=== PATIENT | female | born 1990 | race African-American/Black ===

== ENCOUNTER 2016-12-05 19:45 | Outpatient (CLI) | payer MEDICAID ==
[2016-12-05 20:48] VITALS: BP 116/63
[2016-12-05] MEDS ORDERED: ZOFRAN IV ONE (21:00)
[2016-12-05] MEDS ORDERED: LACTATED RINGERS 1,000 ML IV SCH (21:00)
[2016-12-05] MEDS ORDERED: LACTATED RINGERS 1,000 ML ONE (22:04)
[2016-12-05] MEDS ORDERED: ZOFRAN ONE (22:04)
[2016-12-05] MEDS ORDERED: VISTARIL PO ONE (23:10)
== END 2016-12-05 23:28 | disposition home or self-care (01) ==
LOC: TRG 19:45
PROVIDERS: ATTEND Obstetrics & Gynecology
DX: O47.9 False labor, unspecified (principal); Z3A.00 Weeks of gestation of pregnancy not specified
CPT/HCPCS: 96360; 96374; J2405; J7120; Q0177

== ENCOUNTER 2016-12-06 01:31 | Inpatient (IN) | payer BC, MEDICAID ==
[2016-12-06] MEDS ORDERED: SUBLIMAZE ONE (01:51)
[2016-12-06] MEDS ORDERED: LACTATED RINGERS 1,000 ML ONE (02:02)
[2016-12-06] MEDS ORDERED: POLYCILLIN/NS 2 GM/100 ML 100 ML IV ONE ×2 (02:03→02:24)
[2016-12-06] MEDS ORDERED: BRETHINE IVP PRN (02:24)
[2016-12-06] MEDS ORDERED: XYLOCAINE 2% INFILTRATI ONE (02:24)
[2016-12-06] MEDS ORDERED: MINERAL OIL PO PRN (02:24)
[2016-12-06] MEDS ORDERED: SUBLIMAZE IV PRN (02:24)
[2016-12-06] MEDS ORDERED: ePHEDrine SULFATE IV PRN ×2 (02:24→03:33)
[2016-12-06] MEDS ORDERED: ZOFRAN IV PRN (02:24)
--- NOTE | 2016-12-06 02:30 | History and Physical Report ---
History of Present Illness Date of examination: 12/06/16 Date of admission: 12/06/16 01:44 Chief complaint: labor @ 41 weeks, History of present illness: EDC Calculations 11/29/16 Past History : 3 Term Births: 1 Living Children: 1 Para: 1 Spont. Ab: 1 # 1 Delivery date: 09/16/2011 Weeks Gestation: 40 Delivery type: Anesthesia type: epidural [place] [facility] [place]: Female weight: 7-11 Name: Afua # 2 Delivery date: 2014 Weeks Gestation: 8 Delivery type: SAB Delivery [place] [facility] [place] Comments: D&C Past Medical History: Reviewed history and no changes required: Negative Past Medical History Past Surgical History: D&C: 2014 Past Medical History Surgery (Non-card assembler): D&C: 2014 Abnormal PAP: positive, 2009 ÓSCAR Exposure: negative Infertility: negative Uterine Anomaly: negative Uterine Surgery (not C/S): negative Other Gynecologic Problems: negative Infection History Hx of STD: chlamydia Personal hx. of genital herpes: no Partner hx. of genital herpes: no Rash, Viral, or Febrile illness since last LMP? no TB Risk: no Genetic History Congenital Heart Defect: Mom: no Dad: no Vidya Disease: Mom: no Dad: no Thalassemia Mom: no Dad: no Neural Tube Defect Mom: no Dad: no Down's Syndrome Mom: no Dad: no Jared-Sachs Mom: no Dad: no Sickle Cell Disease/Trait Mom: no Dad: no Hemophilia Mom: no Dad: no Muscular Dystrophy Mom: no Dad: no Cystic Fibrosis Mom: no Dad: no Xavier Chorea Mom: no Dad: no Mental Retardation Mom: no Dad: no Fragile X Mom: no Dad: no Other Genetic/Chromosomal Disorder Mom: no Dad: no Child w/other defect Mom: no Dad: no Enviromental Exposures Xray Exposure: no Medication, drug, or alcohol use since LMP: no Chemical/Other Exposure: no Exposure to Cat Liter: no Hx of Parvovirus (Fifth Disease): no Occupational Exposure to Children: none Current Allergies (reviewed today): No known allergies Past History Past Medical History: no pertinent history - Obstetrical History Expected Date of Delivery: 11/29/16 Actual Gestation: 41 Week(s) 0 Day(s) : 3 Para: 1 Hx # Term Pregnancies: 1 Number of Pregnancies: 0 Spontaneous Abortions: 1 Induced : 0 Number of Living Children: 1 Medications and Allergies Allergies Allergy/AdvReac Type Severity Reaction Status Date / Time No Known Allergies Allergy Verified 12/05/16 22:08 Review of Systems All systems: negative - Vital Signs Vital signs: Vital Signs Resp 12/06/16 02:17 Temp Pulse Resp BP Pulse Ox 12/06/16 02:17 - Physical Exam Breasts: Positive: normal Cardiovascular: Regular rate Lungs: Positive: Clear to auscultation, Normal air movement Abdomen: Positive: normal appearance, soft Genitourinary (Female): Positive: normal external genitalia, normal perenium Vulva: both: normal Vagina: Positive: normal moisture Uterus: Positive: normal size, normal contour Anus/Rectum: Positive: normal perianal skin Extremities: Positive: normal - Obstetrical FHR: category 2 Uterine Contraction Monitor Mode: External Cervical Dilatation: 4 (by sprinkler helper) Uterine Contraction Pattern: Regular Uterine Tone Measurement Phase: Contraction Uterine Contraction Intensity: Moderate Results All other labs normal. Laboratory Data-Patient Name: HARDEEP KULKARNI Test Date Result Blood Type 07/07/2016 A Rh 07/07/2016 Positive Antibody Screen Neg Rubella 07/07/2016 Immune Serology (RPR) 10/29/2016 Non-reactive HBsAg 07/07/2016 Negative Hemoglobin 10/29/2016 9.7 Hematocrit 10/29/2016 29.7 Platelets 10/29/2016 263 [id number] Chlamydia DNA 10/29/2016 Negative GC DNA/Culture 10/29/2016 Urine Culture 10/05/2016 Final report Group B Strep cult 10/29/2016 PAP 06/22/2016 Normal, Satisfactory HIV 10/29/2016 AFP/Quad Screen 06/22/2016 Glucola Test 3hr GTT (Fasting) 1 hr 2 hr 3 hr [facility]-Patient Name:HARDEEP ANNBLE Test Date Result Varicella Ab Sickle Cell 07/07/2016 Negative PPD Fibronectin Cystic Fibrosis Parvovirus TSH Free T4 Hepatitis C ALT AST Uric Acid Creatinine 24 hr Urine Protein CRISTIAN Assessment and Plan 26y/o @ 41 weeks gestations dated by second trimester u/s. complicated by anemia and + GBS test. Plan for admission to L&D, orders in EMR. Will reexamine after epidural or when needed. Pt changed from 2 to 4 in triage. - Patient Problems (1) 41 weeks gestation of Current Visit: Yes Status: Acute (2) Active labor at term Current Visit: Yes Status: Acute Plan to address problem: regular ctx. anticipate Pitocin ordered PRN ivf open for pre-epidural bolus (3) Positive GBS test Current Visit: Yes Status: Acute Plan to address problem: Ampicillin q4h until delivery
[2016-12-06 02:34] LABS: Hematocrit 32.5 % (30.3-42.9); Hemoglobin 10.2 gm/dl (10.1-14.3); Mean Corpuscular HGB Conc 32 % (30-34); Mean Corpuscular Volume 76 fl (79-97); Platelet Count 247 K/mm3 (140-440); Red Blood Count 4.29 M/mm3 (3.65-5.03); Red Cell Distribution Width 15.8 % (13.2-15.2)
[2016-12-06 02:35] LABS: Mean Corpuscular Hemoglobin 24 pg (28-32)
[2016-12-06] MEDS ORDERED: PITOCin/NS 30 UNIT/500ML 500 ML IV SCH (03:00)
[2016-12-06] MEDS ORDERED: LACTATED RINGERS 1,000 ML IV SCH (03:00)
[2016-12-06] MEDS ORDERED: NARCAN 2 MG/2 ML IV PRN (03:33)
--- NOTE | 2016-12-06 03:33 | Anesthesia Consultation ---
Anesthesia Consult and Med Hx Date of service: 12/06/16 - Airway Anesthetic Teeth Evaluation: Good ROM Head & Neck: Adequate Mental/Hyoid Distance: Adequate Mallampati Class: Class II Intubation Access Assessment: Good - Pulmonary Exam CTA: Yes - Cardiac Exam Cardiac Exam: No Murmur - Pre-Operative Health Status ASA Pre-Surgery Classification: ASA2 Proposed Anesthetic Plan: Epidural - Pulmonary Hx Asthma: No - Cardiovascular System Hx Hypertension: No - Central Nervous System Hx Seizures: No Hx Psychiatric Problems: No - Endocrine Hx Renal Disease: No Hx Hypothyroidism: No Hx Hyperthyroidism: No - Hematic Hx Anemia: No Hx Sickle Cell Disease: No - Other Systems Hx Alcohol Use: No
[2016-12-06] MEDS ORDERED: fentaNYL-BUPIV 2 MCG/ML-0.125% 100 ML EPIDURAL SCH (04:00)
--- NOTE | 2016-12-06 05:34 | Progress Note ---
Assessment and Plan patient resting comfortably post epidural, no complaints. AROM - partuclate mec. RN to inform NICU. Second dose of amp due in 40 minutes. anticipate . - Patient Problems (1) 41 weeks gestation of Current Visit: Yes Status: Acute (2) Active labor at term Current Visit: Yes Status: Acute (3) Positive GBS test Current Visit: Yes Status: Acute Subjective - Subjective Date of service: 12/06/16 Principal diagnosis: IUP @ 41weeks, active labor, particulate mec Interval history: EDC Calculations 11/29/16 Past History : 3 Term Births: 1 Living Children: 1 Para: 1 Spont. Ab: 1 # 1 Delivery date: 09/16/2011 Weeks Gestation: 40 Delivery type: Anesthesia type: epidural [place] [facility] [place]: Female weight: 7-11 Name: Afua # 2 Delivery date: 2014 Weeks Gestation: 8 Delivery type: SAB Delivery [place] [facility] [place] Comments: D&C Past Medical History: Reviewed history and no changes required: Negative Past Medical History Past Surgical History: D&C: 2014 Past Medical History Surgery (Non-attending urologist): D&C: 2014 Abnormal PAP: positive, 2009 ÓSCAR Exposure: negative Infertility: negative Uterine Anomaly: negative Uterine Surgery (not C/S): negative Other Gynecologic Problems: negative Infection History Hx of STD: chlamydia Personal hx. of genital herpes: no Partner hx. of genital herpes: no Rash, Viral, or Febrile illness since last LMP? no TB Risk: no Genetic History Congenital Heart Defect: Mom: no Dad: no Vidya Disease: Mom: no Dad: no Thalassemia Mom: no Dad: no Neural Tube Defect Mom: no Dad: no Down's Syndrome Mom: no Dad: no Jared-Sachs Mom: no Dad: no Sickle Cell Disease/Trait Mom: no Dad: no Hemophilia Mom: no Dad: no Muscular Dystrophy Mom: no Dad: no Cystic Fibrosis Mom: no Dad: no [place] Chorea Mom: no Dad: no Mental Retardation Mom: no Dad: no Fragile X Mom: no Dad: no Other Genetic/Chromosomal Disorder Mom: no Dad: no Child w/other defect Mom: no Dad: no Enviromental Exposures Xray Exposure: no Medication, drug, or alcohol use since LMP: no Chemical/Other Exposure: no Exposure to Cat Liter: no Hx of Parvovirus (Fifth Disease): no Occupational Exposure to Children: none Current Allergies (reviewed today): No known allergies Patient reports: no new complaints (patient very comfortale post epidural) Objective - Vital Signs Vital Signs: Vital Signs - 12hr 12/06/16 12/06/16 12/06/16 02:17 02:40 03:20 Temperature 97.1 F L Pulse Rate 94 H Respiratory 18 78 H Rate Blood Pressure Blood Pressure 136/77 [Left Arm] O2 Sat by Pulse 100 Oximetry 12/06/16 12/06/16 12/06/16 03:21 03:23 03:25 Temperature Pulse Rate 93 H 95 H 100 H Respiratory Rate Blood Pressure 124/63 128/63 126/63 Blood Pressure [Left Arm] O2 Sat by Pulse Oximetry 12/06/16 12/06/16 12/06/16 03:27 03:29 03:31 Temperature Pulse Rate 84 83 96 H Respiratory Rate Blood Pressure 129/65 169/90 152/65 Blood Pressure [Left Arm] O2 Sat by Pulse Oximetry 12/06/16 12/06/16 12/06/16 03:33 03:35 03:37 Temperature Pulse Rate 99 H 96 H 96 H Respiratory Rate Blood Pressure 124/59 111/54 97/53 Blood Pressure [Left Arm] O2 Sat by Pulse Oximetry 12/06/16 12/06/16 12/06/16 03:39 03:41 03:43 Temperature Pulse Rate 91 H 100 H 88 Respiratory Rate Blood Pressure 99/57 101/53 107/55 Blood Pressure [Left Arm] O2 Sat by Pulse Oximetry 12/06/16 12/06/16 12/06/16 03:45 03:47 03:49 Temperature Pulse Rate 106 H 85 93 H Respiratory Rate Blood Pressure 107/63 107/64 104/61 Blood Pressure [Left Arm] O2 Sat by Pulse Oximetry 12/06/16 12/06/16 12/06/16 03:51 03:53 03:55 Temperature Pulse Rate 93 H 87 117 H Respiratory Rate Blood Pressure 105/64 107/66 103/58 Blood Pressure [Left Arm] O2 Sat by Pulse Oximetry 12/06/16 12/06/16 12/06/16 03:57 03:59 04:05 Temperature Pulse Rate 101 H 86 95 H Respiratory Rate Blood Pressure 110/56 106/55 136/64 Blood Pressure [Left Arm] O2 Sat by Pulse Oximetry 12/06/16 12/06/16 12/06/16 04:07 04:09 04:11 Temperature Pulse Rate 80 96 H 93 H Respiratory Rate Blood Pressure 129/66 118/55 110/60 Blood Pressure [Left Arm] O2 Sat by Pulse Oximetry 12/06/16 12/06/16 12/06/16 04:13 04:20 04:29 Temperature Pulse Rate 86 92 H Respiratory 14 Rate Blood Pressure 108/63 108/63 Blood Pressure [Left Arm] O2 Sat by Pulse 98 Oximetry 12/06/16 12/06/16 12/06/16 04:34 04:39 04:43 Temperature Pulse Rate 96 H 97 H 97 H Respiratory Rate Blood Pressure 125/65 Blood Pressure [Left Arm] O2 Sat by Pulse 96 96 Oximetry 12/06/16 12/06/16 12/06/16 04:44 04:49 04:54 Temperature Pulse Rate 81 91 H 89 Respiratory Rate Blood Pressure Blood Pressure [Left Arm] O2 Sat by Pulse 96 96 96 Oximetry 12/06/16 12/06/16 12/06/16 04:58 04:59 05:04 Temperature Pulse Rate 98 H 85 85 Respiratory Rate Blood Pressure Blood Pressure [Left Arm] O2 Sat by Pulse 94 95 92 Oximetry 12/06/16 12/06/16 12/06/16 05:09 05:14 05:19 Temperature Pulse Rate 90 97 H 100 H Respiratory Rate Blood Pressure 125/60 Blood Pressure [Left Arm] O2 Sat by Pulse 91 92 92 Oximetry 12/06/16 05:24 Temperature Pulse Rate 103 H Respiratory Rate Blood Pressure Blood Pressure [Left Arm] O2 Sat by Pulse 95 Oximetry - Exam Breasts: normal Cardiovascular: Regular rate Lungs: Clear to auscultation, Normal air movement Abdomen: Present: normal appearance, soft, normal bowel sounds Vulva: both: normal Uterus: Present: normal FHR: auscultation normal, category 1 Uterine Contraction Monitor Mode: External Cervical Dilatation: 8 (AROM - particulate mec) Cervical Effacement Percentage: 100 station: -1 Uterine Contraction Frequency (min): 2.5-4 Uterine Contraction Pattern: Regular Uterine Tone Measurement Phase: Contraction Uterine Contraction Intensity: Moderate Extremities: normal - Labs Labs: Abnormal Labs 12/06/16 02:00 WBC 17.0 H MCV 76 L MCH 24 L RDW 15.8 H Laboratory Results - last 24 hr 12/06/16 02:00 WBC 17.0 H RBC 4.29 Hgb 10.2 Hct 32.5 MCV 76 L MCH 24 L MCHC 32 RDW 15.8 H Plt Count 247
--- NOTE | 2016-12-06 06:11 | Progress Note ---
Assessment and Plan patient reported feeling pressure, SVE 9cm. FHT decel after SVE down to 60's x 9 minutes, ISE placed, repositioned, IVF bolus, and o2via face mask. Dr. Page updated and is in route to hospital. fht back to baseline 130's with ave variablity and early decels with ctx. - Patient Problems (1) 41 weeks gestation of Current Visit: Yes Status: Acute (2) Active labor at term Current Visit: Yes Status: Acute (3) Positive GBS test Current Visit: Yes Status: Acute Subjective - Subjective Date of service: 12/06/16 Principal diagnosis: IUP @ 41weeks, active labor, particulate mec Interval history: EDC Calculations 11/29/16 Past History : 3 Term Births: 1 Living Children: 1 Para: 1 Spont. Ab: 1 # 1 Delivery date: 09/16/2011 Weeks Gestation: 40 Delivery type: Anesthesia type: epidural Delivery location: [facility] [place] Infant Sex: Female weight: 7-11 Name: Afua # 2 Delivery date: 2014 Weeks Gestation: 8 Delivery type: SAB Delivery location: [facility] [place] Comments: D&C Past Medical History: Reviewed history and no changes required: Negative Past Medical History Past Surgical History: D&C: 2014 Past Medical History Surgery (Non-design project manager): D&C: 2014 Abnormal PAP: positive, 2009 ÓSCAR Exposure: negative Infertility: negative Uterine Anomaly: negative Uterine Surgery (not C/S): negative Other Gynecologic Problems: negative Infection History Hx of STD: chlamydia Personal hx. of genital herpes: no Partner hx. of genital herpes: no Rash, Viral, or Febrile illness since last LMP? no TB Risk: no Genetic History Congenital Heart Defect: Mom: no Dad: no Vidya Disease: Mom: no Dad: no Thalassemia Mom: no Dad: no Neural Tube Defect Mom: no Dad: no Down's Syndrome Mom: no Dad: no Jared-Sachs Mom: no Dad: no Sickle Cell Disease/Trait Mom: no Dad: no Hemophilia Mom: no Dad: no Muscular Dystrophy Mom: no Dad: no Cystic Fibrosis Mom: no Dad: no Xavier Chorea Mom: no Dad: no Mental Retardation Mom: no Dad: no Fragile X Mom: no Dad: no Other Genetic/Chromosomal Disorder Mom: no Dad: no Child w/other defect Mom: no Dad: no Enviromental Exposures Xray Exposure: no Medication, drug, or alcohol use since LMP: no Chemical/Other Exposure: no Exposure to Cat Liter: no Hx of Parvovirus (Fifth Disease): no Occupational Exposure to Children: none Current Allergies (reviewed today): No known allergies Patient reports: no new complaints (patient very comfortale post epidural) Objective - Vital Signs Vital Signs: Vital Signs - 12hr 12/06/16 12/06/16 12/06/16 02:17 02:40 03:20 Temperature 97.1 F L Pulse Rate 94 H Respiratory 18 78 H Rate Blood Pressure Blood Pressure 136/77 [Left Arm] O2 Sat by Pulse 100 Oximetry 12/06/16 12/06/16 12/06/16 03:21 03:23 03:25 Temperature Pulse Rate 93 H 95 H 100 H Respiratory Rate Blood Pressure 124/63 128/63 126/63 Blood Pressure [Left Arm] O2 Sat by Pulse Oximetry 12/06/16 12/06/16 12/06/16 03:27 03:29 03:31 Temperature Pulse Rate 84 83 96 H Respiratory Rate Blood Pressure 129/65 169/90 152/65 Blood Pressure [Left Arm] O2 Sat by Pulse Oximetry 12/06/16 12/06/16 12/06/16 03:33 03:35 03:37 Temperature Pulse Rate 99 H 96 H 96 H Respiratory Rate Blood Pressure 124/59 111/54 97/53 Blood Pressure [Left Arm] O2 Sat by Pulse Oximetry 12/06/16 12/06/16 12/06/16 03:39 03:41 03:43 Temperature Pulse Rate 91 H 100 H 88 Respiratory Rate Blood Pressure 99/57 101/53 107/55 Blood Pressure [Left Arm] O2 Sat by Pulse Oximetry 12/06/16 12/06/16 12/06/16 03:45 03:47 03:49 Temperature Pulse Rate 106 H 85 93 H Respiratory Rate Blood Pressure 107/63 107/64 104/61 Blood Pressure [Left Arm] O2 Sat by Pulse Oximetry 12/06/16 12/06/16 12/06/16 03:51 03:53 03:55 Temperature Pulse Rate 93 H 87 117 H Respiratory Rate Blood Pressure 105/64 107/66 103/58 Blood Pressure [Left Arm] O2 Sat by Pulse Oximetry 12/06/16 12/06/16 12/06/16 03:57 03:59 04:05 Temperature Pulse Rate 101 H 86 95 H Respiratory Rate Blood Pressure 110/56 106/55 136/64 Blood Pressure [Left Arm] O2 Sat by Pulse Oximetry 12/06/16 12/06/16 12/06/16 04:07 04:09 04:11 Temperature Pulse Rate 80 96 H 93 H Respiratory Rate Blood Pressure 129/66 118/55 110/60 Blood Pressure [Left Arm] O2 Sat by Pulse Oximetry 12/06/16 12/06/16 12/06/16 04:13 04:20 04:29 Temperature Pulse Rate 86 92 H Respiratory 14 Rate Blood Pressure 108/63 108/63 Blood Pressure [Left Arm] O2 Sat by Pulse 98 Oximetry 12/06/16 12/06/16 12/06/16 04:34 04:39 04:43 Temperature Pulse Rate 96 H 97 H 97 H Respiratory Rate Blood Pressure 125/65 Blood Pressure [Left Arm] O2 Sat by Pulse 96 96 Oximetry 12/06/16 12/06/16 12/06/16 04:44 04:49 04:54 Temperature Pulse Rate 81 91 H 89 Respiratory Rate Blood Pressure Blood Pressure [Left Arm] O2 Sat by Pulse 96 96 96 Oximetry 12/06/16 12/06/16 12/06/16 04:58 04:59 05:04 Temperature Pulse Rate 98 H 85 85 Respiratory Rate Blood Pressure Blood Pressure [Left Arm] O2 Sat by Pulse 94 95 92 Oximetry 12/06/16 12/06/16 12/06/16 05:09 05:14 05:19 Temperature Pulse Rate 90 97 H 100 H Respiratory Rate Blood Pressure 125/60 Blood Pressure [Left Arm] O2 Sat by Pulse 91 92 92 Oximetry 12/06/16 12/06/16 12/06/16 05:24 05:30 05:44 Temperature Pulse Rate 103 H 87 109 H Respiratory Rate Blood Pressure 142/77 Blood Pressure [Left Arm] O2 Sat by Pulse 95 92 Oximetry 12/06/16 12/06/16 12/06/16 05:46 05:51 05:56 Temperature Pulse Rate 97 H 118 H 97 H Respiratory Rate Blood Pressure Blood Pressure [Left Arm] O2 Sat by Pulse 96 90 95 Oximetry 12/06/16 12/06/16 05:58 06:01 Temperature Pulse Rate 88 85 Respiratory Rate Blood Pressure 139/63 Blood Pressure [Left Arm] O2 Sat by Pulse 100 Oximetry - Exam Breasts: normal Cardiovascular: Regular rate Lungs: Clear to auscultation, Normal air movement Abdomen: Present: normal appearance, soft Vulva: both: normal Uterus: Present: normal FHR: category 2 FHR comments: fht decel down to the 60's x 9 minutes total time from initial drop to return to baseline. Uterine Contraction Monitor Mode: External Cervical Dilatation: 9 Cervical Effacement Percentage: 100 station: 0 Uterine Contraction Frequency (min): 2-3.5 Uterine Contraction Duration: 60 Uterine Contraction Pattern: Regular Uterine Tone Measurement Phase: Contraction Uterine Contraction Intensity: Strong/Firm - Labs Labs: Abnormal Labs 12/06/16 02:00 WBC 17.0 H MCV 76 L MCH 24 L RDW 15.8 H Laboratory Results - last 24 hr 12/06/16 12/06/16 02:00 02:00 WBC 17.0 H RBC 4.29 Hgb 10.2 Hct 32.5 MCV 76 L MCH 24 L MCHC 32 RDW 15.8 H Plt Count 247 Blood Type A POSITIVE
[2016-12-06] MEDS ORDERED: POLYCILLIN/NS 1 GM/50 ML 50 ML IV SCH (06:25)
--- NOTE | 2016-12-06 06:41 | Procedure Note ---
OB Delivery Note - Delivery Date of Delivery: 12/06/16 ( Male) Market Director: ERNUKA HASKINS Estimated blood loss: 200cc - Vaginal Delivery presentation: vertex Delivery position: OA (ANGELINA) Intrapartum events: meconium (particulate) Delivery induction: none Delivery augmentation: rupture of membranes Delivery monitor: external uterine, internal FHT Route of delivery: Delivery placenta: spontaneous Delivery cord: 3 umbilical vessels Episiotomy: none Delivery laceration: none Anesthesia: epidural Delivery comments: male del over intact perineum, ANGELINA. cord clamped and cut - infant handed off to NICU team d/t particulate mec. Placenta del intact and complete. Pit to IVF. Apgars 7/9, Wt 7#5oz, EBL 200. Dr. Page present for delivery. Mother and infant remains LDR stable. - A at 1 minute: 7 at 5 minutes: 9 Infant Gender: Male (7#5oz)
[2016-12-06] MEDS: PITOCin/NS 20 UNIT/1000ML DRIP 1,000 ML IV SCH ×2 (06:51→08:31)
[2016-12-06] MEDS ORDERED: PITOCin/NS 20 UNIT/1000ML DRIP 1,000 ML IV SCH (10:02)
[2016-12-06] MEDS ORDERED: SODIUM CHLORIDE FLUSH SYRINGE 10 ML IV NR (10:02)
[2016-12-06] MEDS: NORCO 5/325 PO PRN ×2 (10:11→21:08)
[2016-12-06] MEDS ORDERED: LANSINOH TP PRN (11:00)
[2016-12-06] MEDS ORDERED: TYLENOL PO PRN (11:00)
[2016-12-06] MEDS ORDERED: TUCKS PAD TP PRN (11:00)
[2016-12-06] MEDS ORDERED: DERMOPLAST TP PRN (11:00)
[2016-12-06] MEDS: MOTRIN PO SCH ×3 (11:27→23:52)
[2016-12-06] MEDS: PRENATAL VITAMIN PO SCH (11:27)
[2016-12-06] MEDS ORDERED: PHENERGAN PO PRN (12:00)
[2016-12-06] MEDS ORDERED: BENADRYL PO PRN (12:00)
[2016-12-06 18:48] LABS: Hematocrit 27.6 % (30.3-42.9)
[2016-12-06] MEDS: FEOSOL PO SCH (21:08)
[2016-12-06] MEDS: COLACE PO SCH (21:08)
[2016-12-06] MEDS ORDERED: MILK OF MAGNESIA PO PRN (22:00)
[2016-12-06] MEDS ORDERED: DULCOLAX PR PRN (22:00)
[2016-12-07] MEDS: MOTRIN PO SCH ×4 (05:28→23:15)
[2016-12-07] MEDS ORDERED: BOOSTRIX IM ONE (06:00)
--- NOTE | 2016-12-07 06:30 | Progress Note ---
Assessment and Plan Pt w/o complaint VSS FF below umb Lochia small Perineum intact H&H 9.0/27.6, drop is r/t blood loss from delivery Pt is w/o s/sx of anemia. Doing well s/p vag delivery P: continue pathway d/c in AM Subjective - Subjective Date of service: 12/07/16 (pt w/o complaint) Principal diagnosis: Patient reports: appetite normal, voiding normally, pain well controlled, ambulating normally : doing well Objective - Vital Signs Latest vital signs: Vital Signs Temp Pulse Pulse Resp BP BP Pulse Ox 12/07/16 01:50 97.9 F 85 18 120/65 12/06/16 16:46 98.3 F 78 20 116/68 12/06/16 12:11 97.9 F 90 18 111/57 12/06/16 08:55 99 F 81 18 128/60 12/06/16 08:21 110 H 96 12/06/16 08:16 83 96 12/06/16 08:13 106 H 137/65 12/06/16 08:11 80 96 12/06/16 08:06 95 H 96 12/06/16 08:01 84 96 12/06/16 07:59 87 94 12/06/16 07:58 82 130/65 12/06/16 07:56 85 96 12/06/16 07:51 87 95 12/06/16 07:46 83 97 12/06/16 07:43 92 H 131/63 12/06/16 07:41 89 97 12/06/16 07:36 85 97 12/06/16 07:31 90 97 12/06/16 07:28 92 H 156/69 12/06/16 07:26 95 H 98 12/06/16 07:21 95 H 98 12/06/16 07:16 83 98 12/06/16 07:13 93 H 149/82 12/06/16 07:11 87 97 12/06/16 07:06 90 98 12/06/16 07:01 100 H 97 12/06/16 06:58 91 H 147/70 12/06/16 06:56 101 H 97 12/06/16 06:51 98 H 97 12/06/16 06:46 107 H 97 12/06/16 06:43 142/93 12/06/16 06:41 103 H 96 12/06/16 06:36 91 H 98 12/06/16 06:31 89 98 Intake and Output 12/06/16 12/06/16 12/07/16 14:59 22:59 06:59 Intake Total 1290 240 600 Output Total 700 1000 Balance 590 -760 600 Intake: IV 1050 PITOCin/NS 20 UNIT/1000ML 1050 DRIP 1,000 ML @ 125 mls/ hr IV DIRECT NATALIYA Rx#: [id number] Oral 240 240 Intake, Free Water 600 Output: Urine 700 1000 Void 700 1000 Other: Total, Intake Amount 240 120 Total, Output Amount 700 600 # Voids Void 1 - Exam Breasts: Present: Cardiovascular: Present: Regular rate Abdomen: Present: normal appearance, soft, normal bowel sounds Uterus: Present: normal, firm, fundal height below umbilicus Extremities: Present: normal Deep Tendon Reflex Grade: Normal +2 - Labs Labs: Abnormal lab results 12/06/16 Range/Units 18:42 Hgb 9.0 L (10.1-14.3) gm/dl Hct 27.6 L (30.3-42.9) %
[2016-12-07] MEDS: FEOSOL PO SCH ×2 (09:54→23:15)
[2016-12-07] MEDS: PRENATAL VITAMIN PO SCH (09:54)
[2016-12-07] MEDS ORDERED: FLUARIX QUAD 2016-2017(36 MOS+) IM ONE (12:00)
[2016-12-07] MEDS: NORCO 5/325 PO PRN (20:52)
[2016-12-07] MEDS: COLACE PO SCH (23:15)
[2016-12-08] MEDS: MOTRIN PO SCH (05:38)
--- NOTE | 2016-12-08 09:19 | Discharge Summary ---
Providers - Providers Date of Admission: 12/06/16 01:44 Date of discharge: 12/08/16 Attending physician: INA LOVETT 12/06/16 10:02 Consult to Repair Servicer [CONS] Routine Reason For Exam: assistance with , SNS Primary care physician: INA LOVETT Hospitalization Reason for admission: active labor (hematoma resolved) Delivery: Episiotomy: none Laceration: other (vulvar hematoma that resolved) Other procedures: none complications: none (anemia) Discharge diagnosis: IUP at term delivered baby: male Pertinent studies: Hct 27.6, admit was 32. Has iron prescription that she has not filled, told to get Condition at discharge: Good Disposition: DISCHARGED TO HOME OR SELFCARE - Discharge Diagnoses (1) Vaginal delivery Status: Acute Plan - Discharge Medications Prescriptions: Lidocain2.5%/Prilocai2.5% [Emla] 5 gm TP ONCE PRN #1 tube PRN Reason: Pain Ferrous Sulfate [Feosol 325 MG tab] 325 mg PO TID #90 tablet Ibuprofen [Motrin 800 MG tab] 800 mg PO Q8HR PRN #30 tablet PRN Reason: Pain - Provider Discharge Summary Activity: routine, no sex for 6 weeks, no heavy lifting 4 weeks, no strenuous exercise Diet: routine Additional instructions: [] Smoking cessation referral if applicable(refer to patient education folder for contact #) [] Refer to [facility] Booklet Call your doctor immediately for: * Fever > 100.5 * Heavy vaginal bleeding ( >1 pad per hour) * Severe persistent headache * Shortness of breath * Reddened, hot, painful area to leg or breast * Drainage or odor from incision. * Keep incision clean and dry at all times and follow doctor's instructions regarding bathing/showering - Follow up plan Follow up: INA LOVETT MD [Primary Care Provider] - 7 Days
[2016-12-08] MEDS: FEOSOL PO SCH (09:30)
[2016-12-08] MEDS: PRENATAL VITAMIN PO SCH (09:30)
[2016-12-08] MEDS: COLACE PO SCH (09:30)
[2016-12-08 13:43] VITALS: BP 124/70
== END 2016-12-08 13:20 | disposition home or self-care (01) | DRG 775 ==
LOC: TRG 01:31 → LD 01:44 → OB 09:58
PROVIDERS: ADMIT Obstetrics & Gynecology; ATTEND Obstetrics & Gynecology
PROC: 10E0XZZ Delivery of Products of Conception, External Approach (ICD-10-PCS; principal; 2016-12-06)
PROC: 3E0S3CZ (ICD-10-PCS; 2016-12-06)
PROC: 00HU33Z Insertion of Infusion Device into Spinal Canal, Percutaneous Approach (ICD-10-PCS; 2016-12-06)
DX: O76 Abnormality in fetal heart rate and rhythm complicating labor and delivery (principal); O99.02 Anemia complicating childbirth; O71.82 Other specified trauma to perineum and vulva; D64.9 Anemia, unspecified; O77.0 Labor and delivery complicated by meconium in amniotic fluid; O99.824 Streptococcus B carrier state complicating childbirth; Z3A.41 41 weeks gestation of pregnancy; Z37.0 Single live birth
CPT/HCPCS: 36415; 85014; 85018; 85027; 86592; 86850; 86900; 86901; 88307; 90471; 90686; 90715; 99211; A6250; G0463; J0290; J2590; J3010; J7120